=== PATIENT | female | born 1950 | race Caucasian/White ===

== ENCOUNTER 2017-11-16 23:35 | Emergency (ER) | payer MEDICARE ==
[~2017-11-16] VITALS: Ht 177.8 cm; Wt 146.5 kg
--- NOTE | 2017-11-17 00:55 | Diagnostic Imaging Report ---
EXAM: HIP RIGHT 2-3 VW (+/- PELVIS) INDICATION: Right lateral hip pain COMPARISON: None FINDINGS: BONES: No acute fractures. JOINTS: No malalignment. Mild degenerative changes of the bilateral hips. SOFT TISSUES: Right proximal femoral vascular stent. IMPRESSION: No acute findings of the pelvis or right hip. Signed by: Dr. Carmen Fleming M.D. on 11/17/2017 12:52 AM
== END 2017-11-17 02:12 ==
LOC: ER 23:35
DX: M25.551 Pain in right hip (principal); Y92.128 Other place in nursing home as the place of occurrence of the external cause; G89.29 Other chronic pain; E11.9 Type 2 diabetes mellitus without complications; K21.9 Gastro-esophageal reflux disease without esophagitis; E03.9 Hypothyroidism, unspecified
CPT/HCPCS: 99283